=== PATIENT | female | born 1980 | race American Indian/Alaskan Native ===

== ENCOUNTER 2017-08-16 18:40 | Emergency (ER) | payer SELFPAY ==
[2017-08-16] MEDS ORDERED: TETRACAINE 0.5% OU ONE (21:01)
--- NOTE | 2017-08-16 21:06 | Emergency Department Report ---
Eye Injury/Foreign Body - HPI Duration: Today Eye Location: Right Severity: Mild Tetanus Status: Up to Date Eye Symptoms: Eye Pain: No, Blurred Vision: Yes, Eye Redness: No, Grinding/ Hammering Metal: No, Used Eye Protection: No, Contact Lens Use: No, Recalls Injury: Yes, Photophobia: No ED Review of Systems ROS: Stated complaint: SPLASHED BLEACH IN EYES Other details as noted in HPI Comment: All other systems reviewed and negative Eyes: vision change (p splashing bleach in eye) ED Past Medical Hx - Past Medical History Previous Medical History?: No - Surgical History Past Surgical History?: No - Social History Smoking Status: Never Smoker Substance Use Type: None - Medications Home Medications: Home Medications Medication Instructions Recorded Confirmed Last Taken Type Cipro/Dexameth 0.3/0.1% [Ciprodex 2 drops OD BID #1 bottle 08/16/17 Unknown Rx [facility]] Eye Injury Exam - Exam General: Vital signs noted. No distress. Alert and acting appropriately. Today while patient was cleaning she accidentally splashed bleach in her right eye. She immediately flushed it with water for 20 minutes. She states that she notices a decreased. There is no real appreciable redness of the eye. EOMs are intact globe is intact pupils equal round react to light. - Visual Acuity Right Vision Acuity Degree: 20/40 Left Vision Acuity Degree: 20/30 Bilateral Vision Acuity Degree: 20/20 ED Course Vital Signs 08/16/17 18:44 Temperature 98.2 F Pulse Rate 74 Respiratory 16 Rate Blood Pressure 103/67 O2 Sat by Pulse 99 Oximetry - Reevaluation(s) Reevaluation #1: 08/16/17 21:17 pt to er today p splashing bleach in her r eye she noted dec va of the eye so comes to er va slightly diff no apprec redness eom intact no globe injury under stain - no abrasion or ulceration; no fb will tx with ciprodex and follow up with optha - Eye Procedure Alcaine Drops Administered: Yes Eye Irrigated w/ Saline (ccs): 50 Cyclogel 2 Drops Administered: right eye Progress: no fb. no abrasion. no ulceration. no trauma to the globe. ED Medical Decision Making - Medical Decision Making see note va noted - Differential Diagnosis chemical irritation to eye Critical care attestation.: If time is entered above; I have spent that time in minutes in the direct care of this critically ill patient, excluding procedure time. ED Disposition Clinical Impression: Chemical conjunctivitis of right eye Disposition: TO HOME OR SELFCARE Is pt being admited?: No Does the pt Need Aspirin: No Condition: Stable Instructions: Chemical Eye Ward (ED), Conjunctivitis (ED) Additional Instructions: do not rub eye do not patch eye you will need to see opthamology within 48 hours to reexamine the eye med as ordered today Prescriptions: Cipro/Dexameth 0.3/0.1% [Ciprodex [facility]] 2 drops OD BID #1 bottle Referrals: PRIMARY CAREMD [Primary Care Provider] - 3-5 Days LYNNE COX MD [Staff Physician] - 3-5 Days Time of Disposition: 21:06
[2017-08-16] MEDS ORDERED: FUL-GLO OP ONE ×3 (21:12→22:01)
[2017-08-16 21:25] VITALS: BP 111/60
== END 2017-08-16 21:24 | disposition home or self-care (01) ==
LOC: ED 18:40
DX: H10.211 Acute toxic conjunctivitis, right eye (principal)
CPT/HCPCS: 99284